=== PATIENT | female | born 1995 ===

== ENCOUNTER → 2020-06-25 | Outpatient (CLI) | payer OTHER | LOC: COL.RAD | DX: M79.622 Pain in left upper arm (principal); M79.662 Pain in left lower leg; M79.10 Myalgia, unspecified site | CPT/HCPCS: A9585 ==

== ENCOUNTER → 2020-07-13 | Outpatient (CLI) | payer OTHER | LOC: COL.RAD 12:30 | DX: R20.0 Anesthesia of skin (principal); R20.2 Paresthesia of skin | CPT/HCPCS: A9585 ==